=== PATIENT | male | born 1935 | race Caucasian/White ===

== ENCOUNTER 2018-06-29 10:11 | Inpatient (IN) ==
[2018-06-29] MEDS ORDERED: SODIUM CHLORIDE 0.9% 500 ML IV STA (10:37)
[2018-06-29] MEDS ORDERED: ONDANSETRON 4 MG/2 ML VIAL IV STA (10:37)
[2018-06-29] MEDS ORDERED: PANTOPRAZOLE 40 MG VIAL IV STA (10:37)
[2018-06-29 10:59] LABS: PT Patient Result 10.9 SECS
[2018-06-29 11:10] LABS: Basophils % 0.1 % (0.0-0.8); Eosinophils % 0.1 % (0.00-10.9); Immature Granulocytes % 1.7 %; Immature Granulocytes Absolute 0.25 #; Lymphocytes # 0.9 10*3/uL (1.4-4.0); Lymphocytes % 6.4 % (21.2-54.2); Mean Corpuscular HGB Conc 34.1 GM/DL (32-36); Mean Corpuscular Hemoglobin 30 PG (27-34); Mean Corpuscular Volume 87.1 FL (87-102); Monocytes # 1.3 10*3/uL (0.11-0.8); Monocytes % 9.1 % (1.7-12.7); NRBC # 0.04 10*3/uL; Neutrophils % 82.6 % (38.7-73.9); Red Blood Count 1.01 MC/CUMM (3.8-5.5); Red Cell Distribution Width 15.6 % (9.3-17.3); White Blood Count 14.5 T/CUMM (4-12)
[2018-06-29] MEDS ORDERED: SODIUM CHLORIDE 0.9% 1,000 ML IV PRN ×3 (11:19→12:15)
[2018-06-29 11:20] LABS: Hematocrit 8.8 VOL% (42.0-52.0)
[2018-06-29 11:21] LABS: Platelet Count 12 T/CUMM (130-400)
[2018-06-29 11:25] LABS: Alanine Aminotransferase 12 U/L (16-61); Albumin 2.6 G/DL (3.4-5.0); Alkaline Phosphatase 53 U/L (45-117); Aspartate Amino Transferase 8 U/L (0-37); Bilirubin,Total < 0.39 MG/DL (0.2-1.0); Blood Urea Nitrogen 79 MG/DL (7-18); Calcium 7.7 MG/DL (8.5-10.1); Glucose 166 MG/DL (74-106); Osmolality,Calculated 304.5 MOS/KG (273-304); Potassium 4.8 MMOL/L (3.5-5.1); Sodium 139 MMOL/L (136-145); Total Protein 5.5 G/DL (6.4-8.3)
[2018-06-29] MEDS ORDERED: ACETAMINOPHEN 325 MG TABLET PO PRN (12:15)
[2018-06-29] MEDS ORDERED: ONDANSETRON 4 MG/2 ML VIAL IV PRN (12:15)
[2018-06-29] MEDS ORDERED: DOCUSATE SODIUM 100 MG CAPSULE PO PRN (12:15)
[2018-06-29] MEDS ORDERED: diphenhydrAMINE 50 MG/1 ML VIAL IV PRN (12:15)
[2018-06-29 13:04] LABS: % Iron Saturation 89.4 % (18-50); Ferritin 1420.7 ng/ml (26-388)
[2018-06-29 13:15] LABS: Hematocrit 10.4 VOL% (42.0-52.0); Hemoglobin 3.4 GM/DL (14.0-18.0)
[2018-06-29 13:34] LABS: Folate 7.7 NG/ML (5.4-24.0)
[2018-06-29] MEDS ORDERED: MAGNESIUM HYDROXIDE SUSP 30 ML UDCUP PO PRN (14:15)
[2018-06-29] MEDS ORDERED: ALUMINUM/MAGNES/SIMETH MAX STR 30 ML UDCUP PO PRN (14:15)
[2018-06-29 14:48] LABS: Platelet Estimate Decreased
[2018-06-29] MEDS ORDERED: FUROSEMIDE 20 MG/2 ML VIAL IV ONE (15:41)
[2018-06-29] MEDS: SODIUM CHLORIDE 0.9% 1,000 ML IV SCH (19:46)
[2018-06-29] MEDS: PANTOPRAZOLE 40 MG VIAL IV SCH (20:07)
[2018-06-29 20:27] LABS: Hematocrit 13.4 VOL% (42.0-52.0); Hemoglobin 4.5 GM/DL (14.0-18.0)
[2018-06-30 05:04] LABS: Basophils % 0.1 % (0.0-0.8); Eosinophils % 0.2 % (0.00-10.9); Immature Granulocytes % 1.3 %; Immature Granulocytes Absolute 0.13 #; Lymphocytes # 0.7 10*3/uL (1.4-4.0); Lymphocytes % 7.1 % (21.2-54.2); Mean Corpuscular HGB Conc 34.8 GM/DL (32-36); Mean Corpuscular Hemoglobin 30 PG (27-34); Mean Corpuscular Volume 85.6 FL (87-102); Mean Platelet Volume 12.1 FL (9.6-12.0); Monocytes # 1.4 10*3/uL (0.11-0.8); Monocytes % 14.4 % (1.7-12.7); Neutrophils # 7.5 10*3/uL (1.4-7.4); Neutrophils % 76.9 % (38.7-73.9); Red Blood Count 2.08 MC/CUMM (3.8-5.5); Red Cell Distribution Width 14.8 % (9.3-17.3); White Blood Count 9.7 T/CUMM (4-12)
[2018-06-30 05:09] LABS: Hematocrit 17.8 VOL% (42.0-52.0); Hemoglobin 6.2 GM/DL (14.0-18.0); Platelet Count 28 T/CUMM (130-400)
[2018-06-30 05:30] LABS: Hypochromasia 1+; Microcytosis 1+; Platelet Estimate Decreased
[2018-06-30 05:33] LABS: Albumin 2.1 G/DL (3.4-5.0); Bilirubin,Total 1.1 MG/DL (0.2-1.0); Calcium 7.2 MG/DL (8.5-10.1); Osmolality,Calculated 298.4 MOS/KG (273-304); Potassium 4.1 MMOL/L (3.5-5.1); Total Protein 4.7 G/DL (6.4-8.3)
[2018-06-30] MEDS: SODIUM CHLORIDE 0.9% 1,000 ML IV SCH ×2 (05:57→18:26)
[2018-06-30] MEDS: PANTOPRAZOLE 40 MG VIAL IV SCH ×2 (08:49→20:15)
[2018-06-30] MEDS ORDERED: PANTOPRAZOLE 40 MG VIAL IV SCH (09:00)
[2018-06-30] MEDS: AMIODARONE 200 MG TABLET PO SCH (09:24)
[2018-06-30] MEDS ORDERED: SODIUM CHLORIDE 0.9% 1,000 ML IV PRN (09:27)
[2018-06-30] MEDS ORDERED: LIDOCAINE 100 MG/5 ML SYRINGE ONE (10:00)
[2018-06-30] MEDS ORDERED: PROPOFOL 200 MG/20 ML VIAL IV ONE (10:00)
[2018-06-30 13:37] LABS: Hematocrit 23.6 VOL% (42.0-52.0); Platelet Count 67 T/CUMM (130-400)
[2018-06-30] MEDS: POTASSIUM CHLORIDE INJ 10 MEQ in DEXTROSE 5% NACL 0.9% 1,000 ML IV SCH (16:50)
[2018-06-30] MEDS: ACETAMINOPHEN 325 MG TABLET PO PRN (20:23)
[2018-07-01 02:51] LABS: Basophils % 0.2 % (0.0-0.8); Eosinophils % 0.5 % (0.00-10.9); Hematocrit 22.9 VOL% (42.0-52.0); Hemoglobin 7.7 GM/DL (14.0-18.0); Immature Granulocytes % 1.4 %; Immature Granulocytes Absolute 0.09 #; Lymphocytes # 0.7 10*3/uL (1.4-4.0); Lymphocytes % 11.5 % (21.2-54.2); Mean Corpuscular HGB Conc 33.6 GM/DL (32-36); Mean Corpuscular Hemoglobin 30 PG (27-34); Mean Corpuscular Volume 87.7 FL (87-102); Mean Platelet Volume 13.2 FL (9.6-12.0); Monocytes # 1.3 10*3/uL (0.11-0.8); Monocytes % 20.3 % (1.7-12.7); Neutrophils # 4.2 10*3/uL (1.4-7.4); Neutrophils % 66.1 % (38.7-73.9); Platelet Count 54 T/CUMM (130-400); Red Blood Count 2.61 MC/CUMM (3.8-5.5); White Blood Count 6.4 T/CUMM (4-12)
[2018-07-01 03:17] LABS: Albumin 2.1 G/DL (3.4-5.0); Bilirubin,Total 0.7 MG/DL (0.2-1.0); Osmolality,Calculated 295.1 MOS/KG (273-304); Potassium 4.1 MMOL/L (3.5-5.1); Total Protein 4.6 G/DL (6.4-8.3)
[2018-07-01 03:26] LABS: Eosinophils 1 % (0-10); Lymphocytes 8 % (20-55); Platelet Estimate Decreased; Segmented Neutrophils 77 % (50-85); Total Cells Counted 100
[2018-07-01 03:27] LABS: Polychromasia Few
[2018-07-01] MEDS: ACETAMINOPHEN 325 MG TABLET PO PRN (09:51)
[2018-07-01] MEDS: AMIODARONE 200 MG TABLET PO SCH (09:51)
[2018-07-01] MEDS: PANTOPRAZOLE 40 MG VIAL IV SCH (09:52)
[2018-07-01] MEDS: POTASSIUM CHLORIDE INJ 10 MEQ in DEXTROSE 5% NACL 0.9% 1,000 ML IV SCH (09:55)
[2018-07-01] MEDS ORDERED: FUROSEMIDE 40 MG/4 ML VIAL IV ONE (10:37)
[2018-07-01 18:57] VITALS: BP 121/58
== END 2018-07-01 16:50 | disposition home health service (06) | DRG 381 ==
LOC: N.ED 10:11 → N.EDINP 12:14 → N.4E 13:53
PROVIDERS: ADMIT Internal Medicine; ATTEND Internal Medicine

== ENCOUNTER 2018-07-04 10:46 | Inpatient (IN) ==
[2018-07-04] MEDS ORDERED: ONDANSETRON 4 MG/2 ML VIAL IV STA (11:16)
[2018-07-04] MEDS ORDERED: METOCLOPRAMIDE 10 MG/2 ML VIAL IV STA (11:16)
[2018-07-04] MEDS ORDERED: PANTOPRAZOLE 40 MG VIAL IV STA (11:16)
[2018-07-04 11:35] LABS: Basophils % 0.1 % (0.0-0.8); Eosinophils % 0.1 % (0.00-10.9); Hematocrit 27.4 VOL% (42.0-52.0); Immature Granulocytes % 1.6 %; Immature Granulocytes Absolute 0.39 #; Lymphocytes # 0.7 10*3/uL (1.4-4.0); Lymphocytes % 2.7 % (21.2-54.2); Mean Corpuscular HGB Conc 32.8 GM/DL (32-36); Mean Corpuscular Hemoglobin 30 PG (27-34); Monocytes # 3.3 10*3/uL (0.11-0.8); Monocytes % 13.4 % (1.7-12.7); Neutrophils # 20.3 10*3/uL (1.4-7.4); Neutrophils % 82.1 % (38.7-73.9); Red Blood Count 3.01 MC/CUMM (3.8-5.5); Red Cell Distribution Width 14.4 % (9.3-17.3); White Blood Count 24.7 T/CUMM (4-12)
[2018-07-04 11:39] LABS: Platelet Count 23 T/CUMM (130-400)
[2018-07-04 12:00] LABS: INR 1.1; PT Patient Result 11.1 SECS; Partial Thromboplastin Time 28.5 SECS (0-40)
[2018-07-04 12:08] LABS: Albumin 2.6 G/DL (3.4-5.0); Bilirubin,Total 1.1 MG/DL (0.2-1.0); Calcium 7.8 MG/DL (8.5-10.1); Total Protein 6.2 G/DL (6.4-8.3)
[2018-07-04 12:20] LABS: Anisocytosis Slight; Band Neutrophils 7 % (0-10); Platelet Estimate Decreased; Smudge Cells Few; Total Cells Counted 100
[2018-07-04 12:21] LABS: Segmented Neutrophils 83 % (50-85)
[2018-07-04] MEDS ORDERED: BISACODYL 5 MG TABLET PO PRN (13:59)
[2018-07-04] MEDS ORDERED: ONDANSETRON 4 MG/2 ML VIAL IV PRN (13:59)
[2018-07-04 17:02] LABS: Apearance,Urine Slightly Hazy (Clear); Bilirubin,Urine Negative (Negative); Blood, Urine Negative (Negative); Glucose,Urine (UA) Negative (Negative); Granular Casts,Urine 6 /LPF (0-1); Hyaline Casts,Urine 6 /LPF (0-3); Ketones,Urine Negative (Negative); Mucus,Urine Occasional /LPF (Occasional); Nitrite,Urine Negative (Negative); Protein,Urine 30 MG/DL; RBC,Urine 2 /HPF (0-4); Squamous Epithelial Cell,Urine Occasional /HPF (0-10); Urine Color Amber (Yellow); Urine Specific Gravity 1.019 (1.001-1.035); WBC,Urine 3 /HPF (0-6)
[2018-07-04] MEDS: PIPERACILLIN/TAZOBACTAM 3,375 MG in SODIUM CHLORIDE 0.9% 100 ML IV SCH ×2 (18:27→22:27)
[2018-07-04] MEDS: ACETAMINOPHEN 325 MG TABLET PO PRN (20:46)
[2018-07-04] MEDS: PANTOPRAZOLE 40 MG TABLET PO SCH (20:46)
[2018-07-04] MEDS: DOCUSATE/SENNA 50-8.6 MG TABLET PO SCH (20:46)
[2018-07-05] MEDS: PIPERACILLIN/TAZOBACTAM 3,375 MG in SODIUM CHLORIDE 0.9% 100 ML IV SCH ×3 (06:08→21:32)
[2018-07-05 06:16] LABS: Basophils % 0.1 % (0.0-0.8); Eosinophils % 0.1 % (0.00-10.9); Hematocrit 22.5 VOL% (42.0-52.0); Hemoglobin 7.3 GM/DL (14.0-18.0); Immature Granulocytes % 1.7 %; Immature Granulocytes Absolute 0.31 #; Lymphocytes # 0.6 10*3/uL (1.4-4.0); Lymphocytes % 3.4 % (21.2-54.2); Mean Corpuscular HGB Conc 32.4 GM/DL (32-36); Mean Corpuscular Hemoglobin 29 PG (27-34); Monocytes # 2.4 10*3/uL (0.11-0.8); Monocytes % 13.3 % (1.7-12.7); Neutrophils # 14.7 10*3/uL (1.4-7.4); Neutrophils % 81.4 % (38.7-73.9); Red Cell Distribution Width 14.4 % (9.3-17.3); White Blood Count 18.1 T/CUMM (4-12)
[2018-07-05 06:23] LABS: Platelet Count 11 T/CUMM (130-400)
[2018-07-05 06:37] LABS: Anisocytosis Slight; Band Neutrophils 5 % (0-10); Lymphocytes 5 % (20-55); Platelet Estimate Decreased; Segmented Neutrophils 81 % (50-85); Total Cells Counted 100
[2018-07-05 06:46] LABS: Albumin 1.9 G/DL (3.4-5.0); Bilirubin,Total 0.8 MG/DL (0.2-1.0); Calcium 7.2 MG/DL (8.5-10.1); Potassium 3.6 MMOL/L (3.5-5.1); Total Protein 5.1 G/DL (6.4-8.3)
[2018-07-05] MEDS ORDERED: SODIUM CHLORIDE 0.9% 1,000 ML IV PRN (07:53)
[2018-07-05] MEDS: PANTOPRAZOLE 40 MG TABLET PO SCH ×2 (09:39→21:32)
[2018-07-05] MEDS: AMIODARONE 200 MG TABLET PO SCH (09:39)
[2018-07-05] MEDS: amLODIPine 10 MG TABLET PO SCH (09:39)
[2018-07-05] MEDS: DOCUSATE/SENNA 50-8.6 MG TABLET PO SCH ×2 (09:39→21:32)
[2018-07-05] MEDS ORDERED: FUROSEMIDE 40 MG/4 ML VIAL IV ONE (15:44)
[2018-07-05] MEDS ORDERED: ALBUTEROL/IPRATROPIUM 3 ML NEB RESP TX ONE (15:45)
[2018-07-05] MEDS: FUROSEMIDE 40 MG/4 ML VIAL IV SCH (16:14)
[2018-07-05 16:52] LABS: Apearance,Urine Slightly Hazy (Clear); Bilirubin,Urine Negative (Negative); Blood, Urine Small mg/dL (Negative); Glucose,Urine (UA) Negative (Negative); Ketones,Urine Negative (Negative); Nitrite,Urine Negative (Negative); Protein,Urine 30 MG/DL; Squamous Epithelial Cell,Urine Occasional /HPF (0-10); Urine Color Yellow (Yellow); Urine Specific Gravity 1.013 (1.001-1.035); WBC,Urine 5 /HPF (0-6)
[2018-07-05] MEDS: ALBUTEROL/IPRATROPIUM 3 ML NEB RESP TX SCH (20:04)
[2018-07-06] MEDS: ALBUTEROL/IPRATROPIUM 3 ML NEB RESP TX SCH ×4 (02:01→20:02)
[2018-07-06 05:09] LABS: Hemoglobin 8.4 GM/DL (14.0-18.0)
[2018-07-06 05:10] LABS: Basophils % 0.1 % (0.0-0.8); Eosinophils % 0.1 % (0.00-10.9); Hematocrit 24.9 VOL% (42.0-52.0); Hemoglobin 8.3 GM/DL (14.0-18.0); Immature Granulocytes % 1.7 %; Immature Granulocytes Absolute 0.24 #; Lymphocytes # 0.4 10*3/uL (1.4-4.0); Lymphocytes % 2.7 % (21.2-54.2); Mean Corpuscular HGB Conc 33.3 GM/DL (32-36); Mean Corpuscular Hemoglobin 30 PG (27-34); Mean Corpuscular Volume 90.9 FL (87-102); Monocytes # 1.8 10*3/uL (0.11-0.8); Monocytes % 12.9 % (1.7-12.7); Neutrophils # 11.5 10*3/uL (1.4-7.4); Neutrophils % 82.5 % (38.7-73.9); Red Blood Count 2.74 MC/CUMM (3.8-5.5); Red Cell Distribution Width 14.6 % (9.3-17.3); White Blood Count 13.9 T/CUMM (4-12)
[2018-07-06 05:17] LABS: Platelet Count 38 T/CUMM (130-400)
[2018-07-06 05:44] LABS: Lymphocytes 3 % (20-55); Segmented Neutrophils 86 % (50-85); Total Cells Counted 100
[2018-07-06 05:45] LABS: Hypochromasia 1+; Platelet Estimate Decreased
[2018-07-06 05:46] LABS: Bilirubin,Total 2.2 MG/DL (0.2-1.0); Calcium 7.3 MG/DL (8.5-10.1); Osmolality,Calculated 277.8 MOS/KG (273-304); Potassium 3.2 MMOL/L (3.5-5.1); Total Protein 5.3 G/DL (6.4-8.3)
[2018-07-06] MEDS: PIPERACILLIN/TAZOBACTAM 3,375 MG in SODIUM CHLORIDE 0.9% 100 ML IV SCH ×3 (06:44→21:36)
[2018-07-06] MEDS: PANTOPRAZOLE 40 MG TABLET PO SCH ×2 (09:07→20:58)
[2018-07-06] MEDS: amLODIPine 10 MG TABLET PO SCH (09:07)
[2018-07-06] MEDS: FUROSEMIDE 40 MG/4 ML VIAL IV SCH (09:07)
[2018-07-06] MEDS: DOCUSATE/SENNA 50-8.6 MG TABLET PO SCH ×2 (09:07→20:58)
[2018-07-06] MEDS: AMIODARONE 200 MG TABLET PO SCH (09:07)
[2018-07-06] MEDS: POTASSIUM CHLORIDE 20 MEQ TABLET PO PRN ×4 (11:27→17:22)
[2018-07-06 14:42] LABS: Free T4 (Free Thyroxine) 1.43 NG/DL (0.76-1.46); Thyroid Stimulating Hormone 1.97 uIU/ml (0.358-3.74)
[2018-07-06] MEDS: ACETAMINOPHEN 325 MG TABLET PO PRN (20:58)
[2018-07-07 00:39] LABS: Basophils % 0.1 % (0.0-0.8); Eosinophils % 0.1 % (0.00-10.9); Hemoglobin 8.6 GM/DL (14.0-18.0); Immature Granulocytes % 0.9 %; Immature Granulocytes Absolute 0.09 #; Lymphocytes # 0.4 10*3/uL (1.4-4.0); Lymphocytes % 4.2 % (21.2-54.2); Mean Corpuscular HGB Conc 34.4 GM/DL (32-36); Mean Corpuscular Hemoglobin 30 PG (27-34); Monocytes # 1.5 10*3/uL (0.11-0.8); Monocytes % 15.6 % (1.7-12.7); Neutrophils # 7.6 10*3/uL (1.4-7.4); Neutrophils % 79.1 % (38.7-73.9); Red Blood Count 2.84 MC/CUMM (3.8-5.5); Red Cell Distribution Width 14.6 % (9.3-17.3); White Blood Count 9.7 T/CUMM (4-12)
[2018-07-07] MEDS: ALBUTEROL/IPRATROPIUM 3 ML NEB RESP TX SCH ×4 (00:42→19:59)
[2018-07-07 00:43] LABS: Platelet Count 23 T/CUMM (130-400)
[2018-07-07 01:01] LABS: Albumin 1.9 G/DL (3.4-5.0); Bilirubin,Total 1.1 MG/DL (0.2-1.0); Calcium 7.6 MG/DL (8.5-10.1); Osmolality,Calculated 280.7 MOS/KG (273-304); Potassium 3.9 MMOL/L (3.5-5.1); Total Protein 5.5 G/DL (6.4-8.3)
[2018-07-07 04:49] LABS: Atypical Lymphocytes Few; Hypochromasia Slight; Lymphocytes 10 % (20-55); Segmented Neutrophils 80 % (50-85); Total Cells Counted 100
[2018-07-07 04:50] LABS: Microcytosis 1+; Ovalocytes Slight; Platelet Estimate Decreased
[2018-07-07] MEDS: PIPERACILLIN/TAZOBACTAM 3,375 MG in SODIUM CHLORIDE 0.9% 100 ML IV SCH ×3 (06:19→22:47)
[2018-07-07] MEDS ORDERED: SODIUM CHLORIDE 0.9% 1,000 ML IV PRN (09:08)
[2018-07-07] MEDS: DOCUSATE/SENNA 50-8.6 MG TABLET PO SCH ×2 (09:12→20:55)
[2018-07-07] MEDS: PANTOPRAZOLE 40 MG TABLET PO SCH ×2 (09:12→20:55)
[2018-07-07] MEDS: POTASSIUM CHLORIDE 20 MEQ TABLET PO PRN (09:12)
[2018-07-07] MEDS: AMIODARONE 200 MG TABLET PO SCH (09:12)
[2018-07-07] MEDS: amLODIPine 10 MG TABLET PO SCH (09:12)
[2018-07-07] MEDS: FUROSEMIDE 40 MG/4 ML VIAL IV SCH (09:13)
[2018-07-07] MEDS ORDERED: DIAZEPAM 5 MG TABLET PO ONE (12:50)
[2018-07-07] MEDS ORDERED: MIDAZOLAM 2 MG/2 ML VIAL IV ONE (13:13)
[2018-07-07] MEDS ORDERED: fentaNYL 100 MCG/2 ML VIAL IV ONE (13:13)
[2018-07-07] MEDS ORDERED: MIDAZOLAM 2 MG/2 ML VIAL ONE (13:28)
[2018-07-07] MEDS ORDERED: fentaNYL 100 MCG/2 ML VIAL ONE (13:28)
[2018-07-07] MEDS ORDERED: ONDANSETRON 4 MG/2 ML VIAL ONE (13:29)
[2018-07-07] MEDS: traMADol 50 MG TABLET PO PRN (16:25)
[2018-07-07] MEDS: ACETAMINOPHEN 325 MG TABLET PO PRN (20:55)
[2018-07-08] MEDS: ALBUTEROL/IPRATROPIUM 3 ML NEB RESP TX SCH ×4 (01:18→19:42)
[2018-07-08] MEDS: traMADol 50 MG TABLET PO PRN ×2 (02:35→17:26)
[2018-07-08] MEDS: PIPERACILLIN/TAZOBACTAM 3,375 MG in SODIUM CHLORIDE 0.9% 100 ML IV SCH ×3 (06:15→22:39)
[2018-07-08 08:27] LABS: Basophils % 0.3 % (0.0-0.8); Eosinophils % 0.3 % (0.00-10.9); Hematocrit 28.1 VOL% (42.0-52.0); Hemoglobin 9.5 GM/DL (14.0-18.0); Immature Granulocytes % 1.7 %; Lymphocytes # 0.3 10*3/uL (1.4-4.0); Lymphocytes % 4.7 % (21.2-54.2); Mean Corpuscular HGB Conc 33.8 GM/DL (32-36); Mean Corpuscular Hemoglobin 30 PG (27-34); Mean Corpuscular Volume 90.1 FL (87-102); Monocytes # 0.8 10*3/uL (0.11-0.8); Monocytes % 13.8 % (1.7-12.7); Neutrophils # 4.6 10*3/uL (1.4-7.4); Neutrophils % 79.2 % (38.7-73.9); Red Blood Count 3.12 MC/CUMM (3.8-5.5); Red Cell Distribution Width 14.6 % (9.3-17.3)
[2018-07-08 08:31] LABS: Platelet Count 40 T/CUMM (130-400); White Blood Count 5.8 T/CUMM (4-12)
[2018-07-08] MEDS: DOCUSATE/SENNA 50-8.6 MG TABLET PO SCH ×2 (08:43→21:04)
[2018-07-08] MEDS: PANTOPRAZOLE 40 MG TABLET PO SCH ×2 (08:43→21:04)
[2018-07-08] MEDS: amLODIPine 10 MG TABLET PO SCH (08:43)
[2018-07-08] MEDS: AMIODARONE 200 MG TABLET PO SCH (08:44)
[2018-07-08] MEDS: FUROSEMIDE 40 MG/4 ML VIAL IV SCH (08:58)
[2018-07-08 09:30] LABS: Band Neutrophils 1 % (0-10); Eosinophils 2 % (0-10); Lymphocytes 8 % (20-55); Microcytosis 1+; Segmented Neutrophils 74 % (50-85); Total Cells Counted 100
[2018-07-08 09:34] LABS: Hypochromasia Slight; Platelet Estimate Decreased
[2018-07-08] MEDS ORDERED: PHENOL 1.4% THROAT SPRAY 177 ML BOTTLE PO PRN (16:20)
[2018-07-09] MEDS: ALBUTEROL/IPRATROPIUM 3 ML NEB RESP TX SCH ×2 (00:15→07:06)
[2018-07-09] MEDS: PIPERACILLIN/TAZOBACTAM 3,375 MG in SODIUM CHLORIDE 0.9% 100 ML IV SCH (06:11)
[2018-07-09 07:53] LABS: Basophils % 0.2 % (0.0-0.8); Eosinophils % 0.1 % (0.00-10.9); Hematocrit 27.2 VOL% (42.0-52.0); Hemoglobin 8.6 GM/DL (14.0-18.0); Immature Granulocytes % 2.2 %; Immature Granulocytes Absolute 0.27 #; Lymphocytes # 0.4 10*3/uL (1.4-4.0); Lymphocytes % 3.6 % (21.2-54.2); Mean Corpuscular HGB Conc 31.6 GM/DL (32-36); Mean Corpuscular Hemoglobin 30 PG (27-34); Mean Corpuscular Volume 93.2 FL (87-102); Mean Platelet Volume 13.9 FL (9.6-12.0); Monocytes # 1.1 10*3/uL (0.11-0.8); Monocytes % 8.8 % (1.7-12.7); Neutrophils # 10.5 10*3/uL (1.4-7.4); Neutrophils % 85.1 % (38.7-73.9); Red Blood Count 2.92 MC/CUMM (3.8-5.5); Red Cell Distribution Width 14.4 % (9.3-17.3); White Blood Count 12.3 T/CUMM (4-12)
[2018-07-09 08:00] LABS: Platelet Count 33 T/CUMM (130-400)
[2018-07-09 08:17] LABS: Band Neutrophils 5 % (0-10); Lymphocytes 3 % (20-55); Platelet Estimate Decreased; Segmented Neutrophils 87 % (50-85); Total Cells Counted 100
[2018-07-09] MEDS: DOCUSATE/SENNA 50-8.6 MG TABLET PO SCH (08:46)
[2018-07-09] MEDS: amLODIPine 10 MG TABLET PO SCH (08:47)
[2018-07-09] MEDS: AMIODARONE 200 MG TABLET PO SCH ×2 (08:47)
[2018-07-09] MEDS: PANTOPRAZOLE 40 MG TABLET PO SCH (08:47)
[2018-07-09 12:02] VITALS: BP 118/68
== END 2018-07-09 12:39 | disposition home health service (06) | DRG 445 ==
LOC: N.ED 10:46 → SUATTDRO 13:59 → N.EDINP 13:59 → N.TELEN 16:08
PROVIDERS: ADMIT Internal Medicine; ATTEND Internal Medicine

== ENCOUNTER 2018-07-20 21:07 | Inpatient (IN) ==
[2018-07-20 22:30] LABS: Basophils % 0.2 % (0.0-0.8); Eosinophils % 0.2 % (0.00-10.9); Immature Granulocytes % 1.2 %; Immature Granulocytes Absolute 0.07 #; Lymphocytes # 0.5 10*3/uL (1.4-4.0); Lymphocytes % 7.8 % (21.2-54.2); Mean Corpuscular HGB Conc 32.5 GM/DL (32-36); Mean Corpuscular Hemoglobin 30 PG (27-34); Mean Corpuscular Volume 93.3 FL (87-102); Monocytes # 0.5 10*3/uL (0.11-0.8); Monocytes % 8.8 % (1.7-12.7); Neutrophils # 4.9 10*3/uL (1.4-7.4); Neutrophils % 81.8 % (38.7-73.9); Red Blood Count 1.65 MC/CUMM (3.8-5.5); Red Cell Distribution Width 14.5 % (9.3-17.3)
[2018-07-20 22:41] LABS: Hematocrit 15.4 VOL% (42.0-52.0); Platelet Count 6 T/CUMM (130-400)
[2018-07-20 22:57] LABS: Albumin 2.3 G/DL (3.4-5.0); Bilirubin,Total 0.4 MG/DL (0.2-1.0); Calcium 7.6 MG/DL (8.5-10.1); Osmolality,Calculated 286.1 MOS/KG (273-304); Potassium 4.5 MMOL/L (3.5-5.1); Total Protein 6.1 G/DL (6.4-8.3)
[2018-07-21 00:36] LABS: Anisocytosis Slight; Band Neutrophils 3 % (0-10); Lymphocytes 6 % (20-55); Macrocytosis 1+; Platelet Estimate Decreased; Segmented Neutrophils 88 % (50-85); Total Cells Counted 100
[2018-07-21] MEDS ORDERED: DOCUSATE SODIUM 100 MG CAPSULE PO PRN (01:09)
[2018-07-21] MEDS ORDERED: ONDANSETRON 4 MG/2 ML VIAL IV PRN (01:09)
[2018-07-21] MEDS ORDERED: guaiFENesin/DM ER 600-30 MG TABLET PO PRN (01:09)
[2018-07-21] MEDS ORDERED: ACETAMINOPHEN 325 MG TABLET PO PRN (01:09)
[2018-07-21] MEDS ORDERED: SODIUM CHLORIDE 0.9% 1,000 ML IV PRN ×2 (01:15→22:53)
[2018-07-21] MEDS ORDERED: ONDANSETRON 4 MG TABLET PO PRN (01:16)
[2018-07-21] MEDS: SODIUM CHLORIDE 0.45% 1,000 ML IV SCH (04:00)
[2018-07-21 06:26] LABS: Immature Granulocytes % 0.4 %; Immature Granulocytes Absolute 0.02 #; Lymphocytes # 0.5 10*3/uL (1.4-4.0); Lymphocytes % 11.9 % (21.2-54.2); Mean Corpuscular HGB Conc 32.8 GM/DL (32-36); Mean Corpuscular Hemoglobin 31 PG (27-34); Mean Corpuscular Volume 93.4 FL (87-102); Monocytes # 0.5 10*3/uL (0.11-0.8); Neutrophils # 3.5 10*3/uL (1.4-7.4); Neutrophils % 77.7 % (38.7-73.9); Red Blood Count 1.37 MC/CUMM (3.8-5.5); Red Cell Distribution Width 14.7 % (9.3-17.3); White Blood Count 4.5 T/CUMM (4-12)
[2018-07-21 06:44] LABS: Calcium 7.3 MG/DL (8.5-10.1); Hematocrit 12.8 VOL% (42.0-52.0); Hemoglobin 4.2 GM/DL (14.0-18.0); Osmolality,Calculated 286.8 MOS/KG (273-304); Platelet Count 5 T/CUMM (130-400); Potassium 4.5 MMOL/L (3.5-5.1)
[2018-07-21 06:48] LABS: Band Neutrophils 4 % (0-10); Lymphocytes 14 % (20-55); Segmented Neutrophils 78 % (50-85); Total Cells Counted 100
[2018-07-21 06:49] LABS: Macrocytosis 1+; Platelet Estimate Decreased
[2018-07-21] MEDS ORDERED: CEFIXIME 400 MG PO SCH (09:00)
[2018-07-21] MEDS: PANTOPRAZOLE 40 MG TABLET PO SCH ×2 (09:40→20:12)
[2018-07-21] MEDS ORDERED: ACETAMINOPHEN 325 MG TABLET ONE (13:48)
[2018-07-21] MEDS: ACETAMINOPHEN 325 MG TABLET PO PRN (13:52)
[2018-07-21 21:13] LABS: Hemoglobin 5.4 GM/DL (14.0-18.0)
[2018-07-21 21:14] LABS: Hematocrit 16.7 VOL% (42.0-52.0)
[2018-07-22] MEDS: ACETAMINOPHEN 325 MG TABLET PO PRN (03:24)
[2018-07-22] MEDS: SODIUM CHLORIDE 0.45% 1,000 ML IV SCH (07:37)
[2018-07-22] MEDS: PANTOPRAZOLE 40 MG TABLET PO SCH (08:00)
[2018-07-22 09:43] LABS: Eosinophils % 0.2 % (0.00-10.9); Hemoglobin 7.3 GM/DL (14.0-18.0); Immature Granulocytes Absolute 0.05 #; Lymphocytes # 0.5 10*3/uL (1.4-4.0); Lymphocytes % 10.2 % (21.2-54.2); Mean Corpuscular HGB Conc 33.2 GM/DL (32-36); Mean Corpuscular Hemoglobin 31 PG (27-34); Mean Corpuscular Volume 92.1 FL (87-102); Mean Platelet Volume 11.3 FL (9.6-12.0); Monocytes # 0.6 10*3/uL (0.11-0.8); Monocytes % 11.8 % (1.7-12.7); Neutrophils # 3.8 10*3/uL (1.4-7.4); Neutrophils % 76.8 % (38.7-73.9); Platelet Count 60 T/CUMM (130-400); Red Blood Count 2.39 MC/CUMM (3.8-5.5); Red Cell Distribution Width 14.7 % (9.3-17.3)
[2018-07-22 10:00] LABS: Calcium 7.3 MG/DL (8.5-10.1)
[2018-07-22 10:01] LABS: Osmolality,Calculated 286.7 MOS/KG (273-304); Potassium 4.5 MMOL/L (3.5-5.1)
[2018-07-22 10:11] LABS: Platelet Estimate Decreased
[2018-07-22 10:12] LABS: Anisocytosis Slight
[2018-07-22 11:45] VITALS: BP 123/66
[2018-07-22] MEDS ORDERED: DESITIN 4OZ/NYSTATIN 15 GRAM MIXTURE PASTE TOP SCH (14:00)
== END 2018-07-22 14:35 | disposition home or self-care (01) | DRG 812 ==
LOC: N.ED 21:07 → N.EDINP 07-21 01:09 → N.3E 07-21 02:05
PROVIDERS: ADMIT Internal Medicine; ATTEND Internal Medicine

== ENCOUNTER 2018-09-24 19:09 | Inpatient (IN) ==
[2018-09-24] MEDS ORDERED: SODIUM CHLORIDE 0.9% 500 ML IV STA (20:09)
[2018-09-24] MEDS ORDERED: VANCOMYCIN INJ 1,000 MG in SODIUM CHLORIDE 0.9% 250 ML IV STA (20:09)
[2018-09-24] MEDS ORDERED: PIPERACILLIN/TAZOBACTAM 3,375 MG in SODIUM CHLORIDE 0.9% 100 ML IV STA (20:09)
[2018-09-24] MEDS ORDERED: methylPREDNISolone SOD SUC 125 MG/2 ML VIAL IV STA (20:09)
[2018-09-24] MEDS ORDERED: ONDANSETRON 4 MG/2 ML VIAL IV STA (20:09)
[2018-09-24] MEDS ORDERED: ALBUTEROL NEB SOLN 5 MG/ML 20 ML/BOTTLE RESP TX SCH (20:30)
[2018-09-24] MEDS ORDERED: PIPERACILLIN/TAZOBACTAM 3,375 MG VIAL IV ONE (20:52)
[2018-09-24] MEDS ORDERED: SODIUM CHLORIDE 0.9% 100 ML IV ONE (20:53)
[2018-09-24 20:59] LABS: Basophils % 0.1 % (0.0-0.8); Eosinophils % 0.2 % (0.00-10.9); Hematocrit 21.7 VOL% (42.0-52.0); Hemoglobin 6.9 GM/DL (14.0-18.0); Immature Granulocytes % 1.2 %; Immature Granulocytes Absolute 0.21 #; Lymphocytes # 0.6 10*3/uL (1.4-4.0); Lymphocytes % 3.7 % (21.2-54.2); Mean Corpuscular HGB Conc 31.8 GM/DL (32-36); Mean Corpuscular Hemoglobin 29 PG (27-34); Mean Corpuscular Volume 91.2 FL (87-102); Monocytes % 5.7 % (1.7-12.7); Neutrophils # 15.5 10*3/uL (1.4-7.4); Neutrophils % 89.1 % (38.7-73.9); Red Blood Count 2.38 MC/CUMM (3.8-5.5); Red Cell Distribution Width 15.7 % (9.3-17.3); White Blood Count 17.3 T/CUMM (4-12)
[2018-09-24 21:06] LABS: Platelet Count 12 T/CUMM (130-400)
[2018-09-24 21:22] LABS: PT Patient Result 11.3 SECS
[2018-09-24] MEDS ORDERED: HYDROmorphone 2 MG/1 ML VIAL IV ONE (21:23)
[2018-09-24 21:25] LABS: Albumin 2.5 G/DL (3.4-5.0); Bilirubin,Total 0.5 MG/DL (0.2-1.0); Calcium 8.8 MG/DL (8.5-10.1); Osmolality,Calculated 287.7 MOS/KG (273-304); Potassium 4.4 MMOL/L (3.5-5.1); Total Protein 7.2 G/DL (6.4-8.3)
[2018-09-24] MEDS ORDERED: VANCOMYCIN 1,000 MG VIAL ONE (21:27)
[2018-09-24 21:33] LABS: Lactic Acid 2.1 MMOL/L (0.4-2.0)
[2018-09-24] MEDS ORDERED: ONDANSETRON 4 MG/2 ML VIAL IV PRN (22:53)
[2018-09-24] MEDS ORDERED: ACETAMINOPHEN 325 MG TABLET PO PRN (22:53)
[2018-09-24] MEDS ORDERED: traMADol 50 MG TABLET PO PRN (23:00)
[2018-09-24] MEDS ORDERED: SODIUM CHLORIDE 0.9% 1,000 ML IV PRN (23:01)
[2018-09-24] MEDS ORDERED: ALBUTEROL 2.5 MG/3 ML NEB RESP TX PRN (23:07)
[2018-09-24 23:08] LABS: Band Neutrophils 1 % (0-10); Eosinophils 1 % (0-10); Lymphocytes 3 % (20-55); Segmented Neutrophils 95 % (50-85); Total Cells Counted 100
[2018-09-24 23:10] LABS: Schistocytes Slight
[2018-09-24 23:11] LABS: Anisocytosis Slight; Ovalocytes Slight; Platelet Estimate Decreased
[2018-09-24 23:12] LABS: Microcytosis Slight
[2018-09-24] MEDS ORDERED: PIPERACILLIN/TAZOBACTAM 3,375 MG in SODIUM CHLORIDE 0.9% 100 ML IV SCH (23:30)
[2018-09-25] MEDS: ALBUTEROL/IPRATROPIUM 3 ML NEB RESP TX SCH ×4 (00:31→18:59)
[2018-09-25] MEDS: PIPERACILLIN/TAZOBACTAM 3,375 MG in SODIUM CHLORIDE 0.9% 100 ML IV SCH ×2 (05:27→18:07)
[2018-09-25 10:59] LABS: Basophils % 0.1 % (0.0-0.8); Hematocrit 22.6 VOL% (42.0-52.0); Hemoglobin 7.3 GM/DL (14.0-18.0); Immature Granulocytes % 1.4 %; Lymphocytes # 0.3 10*3/uL (1.4-4.0); Mean Corpuscular HGB Conc 32.3 GM/DL (32-36); Mean Corpuscular Hemoglobin 29 PG (27-34); Mean Corpuscular Volume 89.3 FL (87-102); Monocytes # 0.2 10*3/uL (0.11-0.8); Monocytes % 1.5 % (1.7-12.7); Neutrophils # 13.5 10*3/uL (1.4-7.4); Red Blood Count 2.53 MC/CUMM (3.8-5.5); Red Cell Distribution Width 15.9 % (9.3-17.3); White Blood Count 14.2 T/CUMM (4-12)
[2018-09-25] MEDS ORDERED: POLYETHYLENE GLYCOL POWDER 17 GM PACK PO SCH (11:00)
[2018-09-25 11:08] LABS: Platelet Count 36 T/CUMM (130-400)
[2018-09-25 11:31] LABS: Hypochromasia 1+; Lymphocytes 2 % (20-55); Microcytosis Slight; Ovalocytes Slight; Platelet Estimate Decreased; Segmented Neutrophils 96 % (50-85); Total Cells Counted 100
[2018-09-25] MEDS: HYDROmorphone 2 MG/1 ML VIAL IV PRN ×2 (13:00→17:27)
[2018-09-25 18:47] LABS: Hematocrit 25.5 VOL% (42.0-52.0); Hemoglobin 8.1 GM/DL (14.0-18.0)
[2018-09-25] MEDS: LUBIPROSTONE 24 MCG CAPSULE PO SCH (20:43)
[2018-09-25] MEDS: POLYETHYLENE GLYCOL POWDER 17 GM PACK PO SCH (20:43)
[2018-09-25] MEDS: VANCOMYCIN INJ 1,000 MG in SODIUM CHLORIDE 0.9% 250 ML IV SCH (22:09)
[2018-09-26] MEDS: ALBUTEROL/IPRATROPIUM 3 ML NEB RESP TX SCH ×4 (00:04→19:11)
[2018-09-26] MEDS: HYDROmorphone 2 MG/1 ML VIAL IV PRN ×4 (00:28→21:23)
[2018-09-26] MEDS: PIPERACILLIN/TAZOBACTAM 3,375 MG in SODIUM CHLORIDE 0.9% 100 ML IV SCH ×3 (02:16→17:32)
[2018-09-26 05:26] LABS: Calcium 8.2 MG/DL (8.5-10.1); Osmolality,Calculated 290.3 MOS/KG (273-304); Potassium 4.2 MMOL/L (3.5-5.1)
[2018-09-26 05:31] LABS: Basophils % 0.1 % (0.0-0.8); Eosinophils % 0.2 % (0.00-10.9); Hematocrit 27.5 VOL% (42.0-52.0); Hemoglobin 8.6 GM/DL (14.0-18.0); Immature Granulocytes % 1.5 %; Immature Granulocytes Absolute 0.27 #; Lymphocytes # 0.5 10*3/uL (1.4-4.0); Mean Corpuscular HGB Conc 31.3 GM/DL (32-36); Mean Corpuscular Hemoglobin 28 PG (27-34); Mean Corpuscular Volume 90.2 FL (87-102); Monocytes # 1.3 10*3/uL (0.11-0.8); Monocytes % 7.1 % (1.7-12.7); Neutrophils # 15.5 10*3/uL (1.4-7.4); Neutrophils % 88.1 % (38.7-73.9); Platelet Count 53 T/CUMM (130-400); Red Blood Count 3.05 MC/CUMM (3.8-5.5); Red Cell Distribution Width 15.9 % (9.3-17.3); White Blood Count 17.6 T/CUMM (4-12)
[2018-09-26 06:27] LABS: Band Neutrophils 3 % (0-10); Lymphocytes 5 % (20-55); Myelocytes 1 %; Segmented Neutrophils 81 % (50-85); Total Cells Counted 100
[2018-09-26 06:28] LABS: Acanthocytes 1+; Anisocytosis 1+; Hypochromasia 1+; Platelet Estimate Decreased
[2018-09-26] MEDS: DOCUSATE SODIUM 100 MG CAPSULE PO PRN ×2 (08:55→20:25)
[2018-09-26] MEDS ORDERED: guaiFENesin/DM ER 600-30 MG TABLET PO PRN (09:22)
[2018-09-26] MEDS ORDERED: FUROSEMIDE 20 MG/2 ML VIAL IV ONE (10:15)
[2018-09-26] MEDS: LIDOCAINE 5% PATCH TRANSDERM SCH (10:44)
[2018-09-26] MEDS: methylPREDNISolone SOD SUC 40 MG/1 ML VIAL IV SCH (13:19)
[2018-09-26] MEDS: LUBIPROSTONE 24 MCG CAPSULE PO SCH (20:25)
[2018-09-26] MEDS: MONTELUKAST 10 MG TABLET PO SCH (20:25)
[2018-09-26] MEDS: POLYETHYLENE GLYCOL POWDER 17 GM PACK PO SCH (20:26)
[2018-09-26] MEDS: VANCOMYCIN INJ 1,000 MG in SODIUM CHLORIDE 0.9% 250 ML IV SCH (21:06)
[2018-09-27] MEDS: ALBUTEROL/IPRATROPIUM 3 ML NEB RESP TX SCH ×4 (00:27→19:28)
[2018-09-27] MEDS: HYDROmorphone 2 MG/1 ML VIAL IV PRN ×6 (01:23→22:53)
[2018-09-27] MEDS: methylPREDNISolone SOD SUC 40 MG/1 ML VIAL IV SCH ×2 (01:25→13:42)
[2018-09-27] MEDS: PIPERACILLIN/TAZOBACTAM 3,375 MG in SODIUM CHLORIDE 0.9% 100 ML IV SCH ×3 (01:28→17:47)
[2018-09-27 05:21] LABS: Basophils % 0.2 % (0.0-0.8); Eosinophils % 0.1 % (0.00-10.9); Hematocrit 26.4 VOL% (42.0-52.0); Hemoglobin 8.3 GM/DL (14.0-18.0); Immature Granulocytes % 1.9 %; Immature Granulocytes Absolute 0.36 #; Lymphocytes # 0.3 10*3/uL (1.4-4.0); Lymphocytes % 1.5 % (21.2-54.2); Mean Corpuscular HGB Conc 31.4 GM/DL (32-36); Mean Corpuscular Hemoglobin 29 PG (27-34); Mean Corpuscular Volume 91.7 FL (87-102); Monocytes # 0.3 10*3/uL (0.11-0.8); Monocytes % 1.6 % (1.7-12.7); Neutrophils # 18.1 10*3/uL (1.4-7.4); Neutrophils % 94.7 % (38.7-73.9); Red Blood Count 2.88 MC/CUMM (3.8-5.5); Red Cell Distribution Width 15.8 % (9.3-17.3); White Blood Count 19.1 T/CUMM (4-12)
[2018-09-27 05:27] LABS: Platelet Count 21 T/CUMM (130-400)
[2018-09-27 05:45] LABS: Calcium 8.2 MG/DL (8.5-10.1); Osmolality,Calculated 292.4 MOS/KG (273-304); Potassium 4.4 MMOL/L (3.5-5.1)
[2018-09-27 06:33] LABS: Anisocytosis 1+; Band Neutrophils 10 % (0-10); Platelet Estimate Decreased; Segmented Neutrophils 90 % (50-85); Total Cells Counted 100
[2018-09-27 06:34] LABS: Poikilocytosis Slight
[2018-09-27] MEDS: MONTELUKAST 10 MG TABLET PO SCH ×2 (08:50→20:22)
[2018-09-27] MEDS: DOCUSATE SODIUM 100 MG CAPSULE PO PRN (08:50)
[2018-09-27] MEDS: LIDOCAINE 5% PATCH TRANSDERM SCH (08:55)
[2018-09-27] MEDS: POLYETHYLENE GLYCOL POWDER 17 GM PACK PO SCH (20:21)
[2018-09-27] MEDS: LUBIPROSTONE 24 MCG CAPSULE PO SCH (20:22)
[2018-09-27] MEDS: VANCOMYCIN INJ 1,000 MG in SODIUM CHLORIDE 0.9% 250 ML IV SCH ×2 (22:57→23:01)
[2018-09-28] MEDS: ALBUTEROL/IPRATROPIUM 3 ML NEB RESP TX SCH ×4 (00:32→19:57)
[2018-09-28] MEDS: methylPREDNISolone SOD SUC 40 MG/1 ML VIAL IV SCH ×2 (01:26→12:27)
[2018-09-28] MEDS: PIPERACILLIN/TAZOBACTAM 3,375 MG in SODIUM CHLORIDE 0.9% 100 ML IV SCH ×3 (01:28→18:14)
[2018-09-28] MEDS: HYDROmorphone 2 MG/1 ML VIAL IV PRN ×5 (04:05→20:34)
[2018-09-28 05:46] LABS: Basophils % 0.1 % (0.0-0.8); Eosinophils % 0.1 % (0.00-10.9); Hematocrit 25.5 VOL% (42.0-52.0); Hemoglobin 7.8 GM/DL (14.0-18.0); Immature Granulocytes % 1.6 %; Immature Granulocytes Absolute 0.33 #; Lymphocytes # 0.4 10*3/uL (1.4-4.0); Lymphocytes % 1.8 % (21.2-54.2); Mean Corpuscular HGB Conc 30.6 GM/DL (32-36); Mean Corpuscular Hemoglobin 28 PG (27-34); Mean Corpuscular Volume 91.7 FL (87-102); Monocytes # 0.7 10*3/uL (0.11-0.8); Monocytes % 3.3 % (1.7-12.7); Neutrophils % 93.1 % (38.7-73.9); Platelet Count 42 T/CUMM (130-400); Red Blood Count 2.78 MC/CUMM (3.8-5.5); Red Cell Distribution Width 15.8 % (9.3-17.3); White Blood Count 20.4 T/CUMM (4-12)
[2018-09-28 06:10] LABS: Alanine Aminotransferase 10 U/L (16-61); Albumin 2.3 G/DL (3.4-5.0); Alkaline Phosphatase 58 U/L (45-117); Aspartate Amino Transferase < 3 U/L (0-37); Blood Urea Nitrogen 48 MG/DL (7-18); Calcium 8.4 MG/DL (8.5-10.1); Glucose 103 MG/DL (74-106); Osmolality,Calculated 293.3 MOS/KG (273-304); Potassium 4.3 MMOL/L (3.5-5.1); Sodium 141 MMOL/L (136-145); Total Protein 6.6 G/DL (6.4-8.3)
[2018-09-28] MEDS: MONTELUKAST 10 MG TABLET PO SCH ×2 (08:54→20:23)
[2018-09-28] MEDS: LIDOCAINE 5% PATCH TRANSDERM SCH (08:55)
[2018-09-28 09:18] LABS: Band Neutrophils 1 % (0-10); Lymphocytes 1 % (20-55); Ovalocytes Few; Platelet Estimate Decreased; Polychromasia Slight; Segmented Neutrophils 97 % (50-85); Total Cells Counted 100
[2018-09-28 09:19] LABS: Acanthocytes Few; Hypochromasia 1+; Schistocytes Few; Tear Drop Cells Few
[2018-09-28] MEDS: VANCOMYCIN INJ 1,000 MG in SODIUM CHLORIDE 0.9% 250 ML IV SCH (16:23)
[2018-09-28] MEDS: POLYETHYLENE GLYCOL POWDER 17 GM PACK PO SCH (20:21)
[2018-09-28] MEDS: LUBIPROSTONE 24 MCG CAPSULE PO SCH (20:23)
[2018-09-29] MEDS: HYDROmorphone 2 MG/1 ML VIAL IV PRN ×5 (00:13→21:17)
[2018-09-29] MEDS: methylPREDNISolone SOD SUC 40 MG/1 ML VIAL IV SCH ×2 (00:13→14:40)
[2018-09-29] MEDS: ALBUTEROL/IPRATROPIUM 3 ML NEB RESP TX SCH ×4 (00:31→19:52)
[2018-09-29] MEDS: PIPERACILLIN/TAZOBACTAM 3,375 MG in SODIUM CHLORIDE 0.9% 100 ML IV SCH ×3 (01:55→17:36)
[2018-09-29] MEDS: LIDOCAINE 5% PATCH TRANSDERM SCH (09:29)
[2018-09-29] MEDS: MONTELUKAST 10 MG TABLET PO SCH ×2 (09:29→21:05)
[2018-09-29] MEDS: VANCOMYCIN INJ 1,000 MG in SODIUM CHLORIDE 0.9% 250 ML IV SCH (14:40)
[2018-09-29] MEDS: LUBIPROSTONE 24 MCG CAPSULE PO SCH (21:05)
[2018-09-29] MEDS: POLYETHYLENE GLYCOL POWDER 17 GM PACK PO SCH (21:05)
[2018-09-30] MEDS: ALBUTEROL/IPRATROPIUM 3 ML NEB RESP TX SCH ×5 (01:18→23:56)
[2018-09-30] MEDS: PIPERACILLIN/TAZOBACTAM 3,375 MG in SODIUM CHLORIDE 0.9% 100 ML IV SCH ×2 (01:50→17:58)
[2018-09-30] MEDS: methylPREDNISolone SOD SUC 40 MG/1 ML VIAL IV SCH ×2 (01:50→15:00)
[2018-09-30] MEDS: HYDROmorphone 2 MG/1 ML VIAL IV PRN ×7 (01:57→22:18)
[2018-09-30 05:13] LABS: Basophils % 0.1 % (0.0-0.8); Eosinophils % 0.1 % (0.00-10.9); Hematocrit 23.9 VOL% (42.0-52.0); Hemoglobin 7.6 GM/DL (14.0-18.0); Immature Granulocytes % 1.9 %; Immature Granulocytes Absolute 0.38 #; Lymphocytes # 0.2 10*3/uL (1.4-4.0); Lymphocytes % 1.1 % (21.2-54.2); Mean Corpuscular HGB Conc 31.8 GM/DL (32-36); Mean Corpuscular Hemoglobin 29 PG (27-34); Mean Corpuscular Volume 91.9 FL (87-102); Monocytes # 0.7 10*3/uL (0.11-0.8); Monocytes % 3.4 % (1.7-12.7); Neutrophils # 18.7 10*3/uL (1.4-7.4); Neutrophils % 93.4 % (38.7-73.9); Red Cell Distribution Width 15.6 % (9.3-17.3); White Blood Count 20.1 T/CUMM (4-12)
[2018-09-30 05:15] LABS: Platelet Count 26 T/CUMM (130-400)
[2018-09-30] MEDS ORDERED: SODIUM CHLORIDE 0.9% 1,000 ML IV PRN (05:37)
[2018-09-30 05:43] LABS: Band Neutrophils 1 % (0-10); Hypochromasia 1+; Lymphocytes 1 % (20-55); Segmented Neutrophils 96 % (50-85); Total Cells Counted 100
[2018-09-30 05:44] LABS: Microcytosis 1+; Ovalocytes Slight; Platelet Estimate Decreased
[2018-09-30 05:48] LABS: Calcium 7.9 MG/DL (8.5-10.1); Osmolality,Calculated 290.3 MOS/KG (273-304); Potassium 4.2 MMOL/L (3.5-5.1)
[2018-09-30] MEDS ORDERED: SODIUM PHOSPHATE ENEMA 133 ML BOTTLE RECTAL PRN (08:16)
[2018-09-30] MEDS ORDERED: LACTULOSE 20 GM/30 ML UDCUP PO PRN (09:11)
[2018-09-30] MEDS: MONTELUKAST 10 MG TABLET PO SCH ×2 (09:20→20:54)
[2018-09-30] MEDS: LIDOCAINE 5% PATCH TRANSDERM SCH (09:21)
[2018-09-30] MEDS: VANCOMYCIN INJ 1,000 MG in SODIUM CHLORIDE 0.9% 250 ML IV SCH (09:22)
[2018-09-30] MEDS: LUBIPROSTONE 24 MCG CAPSULE PO SCH (20:54)
[2018-09-30] MEDS: POLYETHYLENE GLYCOL POWDER 17 GM PACK PO SCH (20:54)
[2018-10-01] MEDS: methylPREDNISolone SOD SUC 40 MG/1 ML VIAL IV SCH ×2 (01:21→13:03)
[2018-10-01] MEDS: PIPERACILLIN/TAZOBACTAM 3,375 MG in SODIUM CHLORIDE 0.9% 100 ML IV SCH ×3 (01:25→17:43)
[2018-10-01 05:25] LABS: Basophils % 0.2 % (0.0-0.8); Eosinophils # 0.1 10*3/uL (0.0-0.87); Eosinophils % 0.3 % (0.00-10.9); Immature Granulocytes Absolute 0.65 #; Lymphocytes # 0.3 10*3/uL (1.4-4.0); Lymphocytes % 1.4 % (21.2-54.2); Mean Corpuscular HGB Conc 31.6 GM/DL (32-36); Mean Corpuscular Hemoglobin 29 PG (27-34); Mean Corpuscular Volume 91.4 FL (87-102); Monocytes # 0.7 10*3/uL (0.11-0.8); Monocytes % 3.4 % (1.7-12.7); Neutrophils % 91.7 % (38.7-73.9); Red Cell Distribution Width 15.5 % (9.3-17.3); White Blood Count 21.8 T/CUMM (4-12)
[2018-10-01] MEDS: VANCOMYCIN INJ 1,000 MG in SODIUM CHLORIDE 0.9% 250 ML IV SCH ×3 (05:25→22:28)
[2018-10-01] MEDS: HYDROmorphone 2 MG/1 ML VIAL IV PRN ×4 (05:36→17:43)
[2018-10-01 05:50] LABS: Hemoglobin 9.8 GM/DL (14.0-18.0); Platelet Count 9 T/CUMM (130-400); Red Blood Count 3.39 MC/CUMM (3.8-5.5)
[2018-10-01 06:34] LABS: Acanthocytes 2+; Anisocytosis 2+; Band Neutrophils 2 % (0-10); Hypochromasia 1+; Lymphocytes 2 % (20-55); Metamyelocytes 2 %; Microcytosis 2+; Ovalocytes 1+; Platelet Estimate Decreased; Segmented Neutrophils 91 % (50-85); Total Cells Counted 100
[2018-10-01] MEDS: ALBUTEROL/IPRATROPIUM 3 ML NEB RESP TX SCH ×3 (07:15→19:10)
[2018-10-01] MEDS: LIDOCAINE 5% PATCH TRANSDERM SCH (08:39)
[2018-10-01] MEDS: MONTELUKAST 10 MG TABLET PO SCH ×2 (08:39→22:31)
[2018-10-01] MEDS ORDERED: oxyCODONE/ACETAMINOPHEN 5-325 MG TABLET PO PRN (11:23)
[2018-10-01] MEDS ORDERED: fentaNYL 25 MCG/HR PATCH TRANSDERM SCH (11:30)
[2018-10-01] MEDS ORDERED: chlorproMAZINE INJ 50 MG in SODIUM CHLORIDE 0.9% 100 ML IV PRN (18:40)
[2018-10-01] MEDS ORDERED: chlorproMAZINE 25 MG TABLET PO PRN (18:40)
[2018-10-01] MEDS ORDERED: PROMETHAZINE INJ 25 MG in SODIUM CHLORIDE 0.9% 50 ML IV PRN (18:40)
[2018-10-01] MEDS ORDERED: ALUMINUM/MAGNES/SIMETH MAX STR 30 ML UDCUP PO PRN (18:40)
[2018-10-01] MEDS ORDERED: TEMAZEPAM 7.5 MG CAPSULE PO PRN (18:40)
[2018-10-01] MEDS ORDERED: ONDANSETRON 4 MG/2 ML VIAL IV PRN (18:40)
[2018-10-01] MEDS ORDERED: diphenhydrAMINE CAP 25 MG CAPSULE PO PRN (18:40)
[2018-10-01] MEDS ORDERED: LOPERAMIDE 2 MG CAPSULE PO PRN ×2 (18:40)
[2018-10-01] MEDS ORDERED: chlorproMAZINE INJ 25 MG in SODIUM CHLORIDE 0.9% 100 ML IV PRN (18:40)
[2018-10-01] MEDS ORDERED: BENZTROPINE 2 MG/2 ML AMP IV PRN (18:40)
[2018-10-01] MEDS ORDERED: guaiFENesin 200 MG/10 ML UDCUP PO PRN (18:40)
[2018-10-01] MEDS: POLYETHYLENE GLYCOL POWDER 17 GM PACK PO SCH (22:28)
[2018-10-01] MEDS: LUBIPROSTONE 24 MCG CAPSULE PO SCH (22:29)
[2018-10-02] MEDS: HYDROmorphone 2 MG/1 ML VIAL IV PRN ×2 (00:55→10:07)
[2018-10-02] MEDS: methylPREDNISolone SOD SUC 40 MG/1 ML VIAL IV SCH (00:55)
[2018-10-02] MEDS: PIPERACILLIN/TAZOBACTAM 3,375 MG in SODIUM CHLORIDE 0.9% 100 ML IV SCH (01:02)
[2018-10-02] MEDS: ALPRAZolam 0.25 MG TABLET PO PRN ×2 (03:36→10:11)
[2018-10-02 05:05] LABS: Basophils # 0.1 10*3/uL (0.0-0.2); Basophils % 0.2 % (0.0-0.8); Eosinophils # 0.1 10*3/uL (0.0-0.87); Eosinophils % 0.3 % (0.00-10.9); Hematocrit 33.4 VOL% (42.0-52.0); Hemoglobin 10.7 GM/DL (14.0-18.0); Immature Granulocytes % 3.4 %; Immature Granulocytes Absolute 0.92 #; Lymphocytes # 0.5 10*3/uL (1.4-4.0); Lymphocytes % 1.9 % (21.2-54.2); Mean Corpuscular Hemoglobin 29 PG (27-34); Mean Corpuscular Volume 91.8 FL (87-102); Monocytes # 1.2 10*3/uL (0.11-0.8); Monocytes % 4.3 % (1.7-12.7); Neutrophils # 24.4 10*3/uL (1.4-7.4); Neutrophils % 89.9 % (38.7-73.9); Red Blood Count 3.64 MC/CUMM (3.8-5.5); Red Cell Distribution Width 15.6 % (9.3-17.3); White Blood Count 27.2 T/CUMM (4-12)
[2018-10-02 05:34] LABS: Platelet Count 31 T/CUMM (130-400)
[2018-10-02 06:00] LABS: Calcium 8.3 MG/DL (8.5-10.1); Lymphocytes 5 % (20-55); Osmolality,Calculated 287.4 MOS/KG (273-304); Platelet Estimate Decreased; Segmented Neutrophils 95 % (50-85); Total Cells Counted 100
[2018-10-02] MEDS: ALBUTEROL/IPRATROPIUM 3 ML NEB RESP TX SCH ×2 (07:23)
[2018-10-02 08:27] VITALS: BP 143/77
[2018-10-02] MEDS: LIDOCAINE 5% PATCH TRANSDERM SCH (10:11)
[2018-10-02] MEDS: MONTELUKAST 10 MG TABLET PO SCH (10:11)
== END 2018-10-02 11:50 | disposition home health service (06) | DRG 202 ==
LOC: N.ED 19:09 → SUATTDRO 22:52 → N.EDINP 22:52 → N.4E 23:26
PROVIDERS: ADMIT Internal Medicine; ATTEND Internal Medicine Cardiovascular Disease